=== PATIENT | female | born 1995 | race Hispanic/Latino ===

== ENCOUNTER 2018-06-20 12:20 | Emergency (ER) | payer BC, OTHER ==
[2018-06-20 12:22] VITALS: BMI 22.8
[2018-06-20] MEDS ORDERED: Sodium Chloride 0.9% 1,000 ML IV STA (13:21)
[2018-06-20 13:50] LABS: BASO # 0.1 K/uL (0.0-0.2); BASO % 0.4 % (0.0-2.0); EOS # 0.1 K/uL (0.0-0.7); EOS % 0.5 % (0.0-4.0); HEMOGLOBIN 14.6 g/dL (12.0-16.0); LYMPH # 1.6 K/uL (1.0-4.3); LYMPH % 11.6 % (20.0-40.0); MEAN CELL VOLUME 82.3 fl (81.0-99.0); MEAN CORPUSCULAR HEMOGLOBIN 27.3 pg (27.0-31.0); MEAN CORPUSCULAR HGB CONC 33.1 g/dL (33.0-37.0); MEAN PLATELET VOLUME 10.9 fl (7.2-11.7); MONO # 0.4 K/uL (0.0-0.8); MONO % 2.9 % (0.0-10.0); NEUT # 11.7 K/uL (1.8-7.0); NEUT % 84.6 % (50.0-75.0); RBC 5.36 Mil/uL (3.80-5.20); RED CELL DISTRIBUTION WIDTH 13.4 % (11.5-14.5); WHITE BLOOD COUNT 13.9 K/uL (4.8-10.8)
--- NOTE | 2018-06-20 14:42 | ED PDOC ---
HPI: Abdomen Time Seen by Provider: 06/20/18 12:52 Chief Complaint (Nursing): GI Problem Chief Complaint (Provider): vomiting History Per: Patient History/Exam Limitations: no limitations Onset/Duration Of Symptoms: Hrs (x7) Additional Complaint(s): Karen Juarez, a 22 year old female with no significant past medical history, presents to the emergency department with vomiting onset this morning. Patient states she woke up at 7 am vomiting and has been unable to tolerate food or liquid since. She reports chills on and off and a mild headache. Patient states she was drinking wine last night, has had a hangover before, but does not feel this is one. She is currently menstruating. No further medical complaints. Past Medical History Reviewed: Historical Data, Nursing Documentation, Vital Signs Vital Signs: Last Vital Signs Temp 98 F 06/20/18 12:32 Pulse 96 H 06/20/18 12:32 Resp 20 06/20/18 12:32 BP 142/96 H 06/20/18 12:32 Pulse Ox 96 06/20/18 12:32 - Family History Family History: States: Unknown Family Hx - Allergies Allergies/Adverse Reactions: Allergies Allergy/AdvReac Type Severity Reaction Status Date / Time Milk Containing Products Allergy SHORTNESS Verified 06/20/18 12:32 OF BREATH nuts Allergy ITCHING Uncoded 06/20/18 12:32 Review of Systems ROS Statement: Except As Marked, All Systems Reviewed And Found Negative Constitutional: Positive for: Chills Gastrointestinal: Positive for: Vomiting Neurological: Positive for: Headache (mild) Physical Exam - Reviewed Nursing Documentation Reviewed: Yes Vital Signs Reviewed: Yes - Physical Exam Appears: Positive for: Well, Non-toxic, No Acute Distress Head Exam: Positive for: ATRAUMATIC, NORMAL INSPECTION, NORMOCEPHALIC Skin: Positive for: Normal Color, Warm, DRY Eye Exam: Positive for: EOMI, Normal appearance, PERRL ENT: Positive for: Normal ENT Inspection Neck: Positive for: Normal, Painless ROM Cardiovascular/Chest: Positive for: Regular Rate, Rhythm Respiratory: Positive for: Normal Breath Sounds. Negative for: Respiratory Distress Gastrointestinal/Abdominal: Positive for: Normal Exam, Soft Back: Positive for: Normal Inspection Extremity: Positive for: Normal ROM Neurologic/Psych: Positive for: Alert, Oriented - Laboratory Results Result Diagrams: 06/20/18 13:45 06/20/18 14:45 - ECG O2 Sat by Pulse Oximetry: 96 (RA) Pulse Ox Interpretation: Normal Medical Decision Making Medical Decision Making: Time: 12:52 Initial Impression: enteritis vs other causes of vomiting Initial Plan: --CMP --HCG --Lipase --CBC w/ differential --Sodium chloride 1000 ml --Zofran inj --Urinalysis -reassess patient and anticipate discharge home pending patient is able to tolerate PO -discharge 1629, pain improved, tolerating PO, return parameters discussed Scribe Attestation: Documented by Monique Black, acting as a scribe for Jayde Richardson MD. Provider Scribe Attestation: All medical record entries made by the Scribe were at my direction and personally dictated by me. I have reviewed the chart and agree that the record accurately reflects my personal performance of the history, physical exam, medical decision making, and the department course for this patient. I have also personally directed, reviewed, and agree with the discharge instructions and disposition. Disposition - Clinical Impression Clinical Impression: Gastroenteritis - Disposition Disposition: Routine/Home Disposition Time: 16:29 Condition: IMPROVED Additional Instructions: Increase soft food and water intake for the next 24 hours. Increase diet as tolerated. Follow up with primary medical doctor as needed. Instructions: Gastritis (DC) Forms: [employer] (Greek) Print Language: BULGARIAN
[2018-06-20 15:00] LABS: ALB/GLOB RATIO 1.2 (1.0-2.1); ALBUMIN 4.4 g/dL (3.5-5.0); ALT/SGPT 24 U/L (9-52); AST/SGOT 38 U/L (14-36); BLOOD UREA NITROGEN 10 mg/dl (7-17); CALCIUM 9.9 mg/dL (8.4-10.2); GFR NON-AFRICAN AMERICAN > 60; LIPASE 114 U/L (23-300)
[2018-06-20 15:13] LABS: SQUAMOUS EPITHIAL 1 /hpf (0-5); URINE BACTERIA RARE (<OCC); URINE BILIRUBIN NEGATIVE (NEGATIVE); URINE CLARITY CLEAR (Clear); URINE COLOR YELLOW (YELLOW); URINE GLUCOSE (UA) NEG (Normal); URINE LEUKOCYTE ESTERASE NEG Leu/uL (Negative); URINE PROTEIN NEGATIVE (NEGATIVE); URINE UROBILINOGEN 0.2-1.0 mg/dL (0.2-1.0)
[2018-06-20 15:15] LABS: URINE BLOOD SMALL (NEGATIVE)
[2018-06-20 16:44] VITALS: BP 109/65; PULSE 71; RESP 18; TEMP 98.3
[2018-06-21 14:41] VITALS: O2SAT 96
== END 2018-06-20 16:46 | disposition home or self-care (01) ==
LOC: H.ER 12:20
DX: K52.9 Noninfective gastroenteritis and colitis, unspecified (principal)
CPT/HCPCS: 80053; 81003; 81025; 83690; 85025; 96361; 96374; 96375; 99283; J2405; J2765; J7030